=== PATIENT | male | born 1965 ===

== ENCOUNTER 2018-06-17 08:56 | Emergency (ER) | payer OTHER ==
[2018-06-17 09:12] VITALS: RESP 18; O2SAT 99
[2018-06-17] MEDS ORDERED: Sodium Chloride 0.9% 1,000 ML IV STA (09:13)
[2018-06-17] MEDS ORDERED: Lidocaine 129 MG in Sodium Chloride 0.9% 100 ML IV STA (09:13)
--- NOTE | 2018-06-17 09:16 | C.PDOC ---
History Of Present Illness 52 y/o male presents to the ED complaining of new-onset right groin pain since this morning. Patient states he awoke normally, and immediately noticed right lower quadrant discomfort and felt the urge to have a bowel movement, though none occurred. He now reports pain is traveling to the right groin and inner thigh. Associated with nausea and vomiting. He denies any scrotal pain, scrotal swelling, fever, or chills. Also denies prior history of renal calculi. EXAM MOD DIST NONTOXIC ABD SOFT NT ND NO R/G REMAINDER NEG Time Seen by Provider: 06/17/18 09:05 Chief Complaint (Nursing): Abdominal Pain History Per: Patient History/Exam Limitations: no limitations Onset/Duration Of Symptoms: Hrs Current Symptoms Are (Timing): Still Present Location Of Pain/Discomfort: RLQ Radiation Of Pain To:: Other (Right groin) Past Medical History Reviewed: Historical Data, Nursing Documentation, Vital Signs Vital Signs: Last Vital Signs Temp 98.7 F 06/17/18 09:50 Pulse 68 06/17/18 09:50 Resp 18 06/17/18 09:50 BP 116/71 06/17/18 09:50 Pulse Ox 99 06/17/18 10:44 - Medical History PMH: No Chronic Diseases Denies: Kidney Stones Surgical History: No Surg Hx Family History: States: No Known Family Hx - Social History Hx Alcohol Use: Yes Hx Substance Use: No - Immunization History Hx Tetanus Toxoid Vaccination: Yes Hx Influenza Vaccination: Yes Hx Pneumococcal Vaccination: Yes Review Of Systems Except As Marked, All Systems Reviewed And Found Negative. Constitutional: Negative for: Fever, Chills Gastrointestinal: Positive for: Nausea, Vomiting, Abdominal Pain (RLQ). Negative for: Diarrhea Genitourinary: Positive for: Other (Right groin pain). Negative for: Dysuria, Frequency, Incontinence, Penile Discharge, Scrotal Pain (or swelling) Skin: Negative for: Rash Neurological: Negative for: Weakness, Numbness, Incoordination Physical Exam - Physical Exam Appears: Non-toxic, In Acute Distress (mild distress) Skin: Normal Color, Warm, Dry Head: Atraumatic, Normacephalic Eye(s): bilateral: Normal Inspection, PERRL, EOMI Oral Mucosa: Moist Neck: Normal ROM, Supple Chest: Symmetrical Cardiovascular: Rhythm Regular, No Murmur Respiratory: Normal Breath Sounds, No Accessory Muscle Use, Other (NARD) Gastrointestinal/Abdominal: Soft, No Tenderness, No Distention, No Guarding, No Rebound Back: Normal Inspection, No CVA Tenderness, No Vertebral Tenderness Extremity: Bilateral: Atraumatic, Normal Color And Temperature, Normal ROM Pulses: Left Dorsalis Pedis: Normal, Right Dorsalis Pedis: Normal Neurological/Psych: Oriented x3, Normal Speech, Normal Cranial Nerves, Normal Motor, Normal Sensation Gait: Steady ED Course And Treatment - Laboratory Results Result Diagrams: 06/17/18 09:35 06/17/18 09:35 O2 Sat by Pulse Oximetry: 99 (RA) Pulse Ox Interpretation: Normal - CT Scan/US CT Abd/Pelvis Other Rad Studies (CT/US): Read By Radiologist, Radiology Report Reviewed CT/US Interpretation: Accession No. : [id number]. Patient Name / ID : JANA SALAS / [id number]. Exam Date : 06/17/2018 09:36:13 ( Approved ). Study Comment : Sex / Age : M / 52Y. Creator : Patti Cordoba. Dictator : Header Machine Operator : Ice Seller : Gunnar Segundo MD. Approver2 : Report Date : 06/17/2018 09:44:45. My Comment : . Date of service: 06/17/2018. PROCEDURE: CT abdomen and pelvis dated 06/17/2018. HISTORY: Abdominal pain rule out stone. COMPARISON: No prior study available for comparison. TECHNIQUE: Contiguous axial images of the abdomen and pelvis without oral or intravenous contrast . Sagittal and coronal reformats generated. Radiation dose : Total exam DLP = 642.43 mGy-cm. This CT exam was performed using one or more of the following dose reduction techniques: Automated exposure control, adjustment of the mA and/or kV according to patient size, and/or use of iterative reconstruction technique. FINDINGS: LOWER THORAX: Mild passive/ dependent type atelectasis both lung bases. There are also atelectatic and or scarring changes seen in the middle lobe and lingular regions as well. No effusion or basilar pneumothorax. Heart size is within range of normal. No significant pericardial effusion. LIVER: Liver is enlarged measuring over 20 cm in CC dimension. No obvious hepatic mass collection or calcification. GALLBLADDER AND BILE DUCTS: Unremarkable. PANCREAS: Pancreas is slightly atrophic and fatty replaced. No obvious pancreatic masses collections or calcifications. . SPLEEN: Unremarkable. No splenomegaly. ADRENALS: Unremarkable. KIDNEYS AND URETERS: Malrotation right kidney. There is mild right-sided hydronephrosis with a small approximately 3 mm elliptical shaped calculus either within the right posterior lumen of the urinary bladder or intramural portion of the right UVJ. And mild infiltration changes and fluid also seen in the right perinephric fat adjacent to the at ascending colon. BLADDER: Grossly unremarkable. REPRODUCTIVE: Unrem prostate gland unremarkable. APPENDIX: Unrem normal appendix best seen on axial image number [id number]. BOWEL: Evaluation of the bowel is somewhat limited due to the lack of oral contrast. The stomach is distended with food debris/liquid and air. Visualized loops of small bowel exhibit normal contour and caliber. No evidence of acute mechanical small bowel obstruction. A good portion of the colon is relatively collapsed which in part presumably accounts for thick-walled appearance however mild submucosal fatty deposition related to prior bouts of nonspecific inflammation the to be considered. Diverticulosis involving the sigmoid and descending colon. There are some vague infiltration changes also seen adjacent to a short segment of the distal descending/sigmoid colon junction. Rule out mild early acute diverticulitis. . Note also made of an a few right-sided colonic diverticula. PERITONEUM: As above. No free intraperitoneal air small fat containing umbilical hernia. Small fat containing bilateral inguinal hernias left larger than right. LYMPH NODES: Unremarkable. No enlarged lymph nodes. VASCULATURE: No evidence of abdominal aortic or iliac artery aneurysm. BONES: Note is made of an in situ intramedullary male proximal left femur. Mild multilevel degenerative spondylosis of the lumbar spine. There is an elliptical shaped lucency within L4 segment which the joins the superior L4 endplate. This may represent a large chronic Schmorl's node and /or degenerative subchondral cyst. . No acute compression fractures no retropulsed fragments. OTHER FINDINGS: None. IMPRESSION: There is mild right -sided hydronephrosis secondary to a small 3 mm calculus right posterior lumen of the urinary bladder or within the intramural portion of the right UVJ. Mild infiltration and fluid present in the right perinephric fat adjacent to the ascending colon. The diverticulosis on anomaly involving the sigmoid and descending colon. There are mild infiltration changes in adjacent to a short segment of the distal descending/sigmoid colon junction ; rule out mild early acute diverticulitis. Additionally, most of the colon is collapsed which presumably accounts for slight thick-walled appearance however submucosal fatty deposition which can be seen in chronic inflammation to be considered. Clinical correlation recommended. Hepatomegaly. Progress - Re-Evaluation Re-evaluation Note: 06/17/18 10:47 IMPROVED ASYMPT. - Data Reviewed Data Reviewed: Lab, Diagnostic imaging, Old records Medical Decision Making Medical Decision Making: Impression: Right groin and RLQ pain Initial Plan: --EKG --CMP --Lipase --CBC --Urinalysis --IV fluids --Toradol 30 mg IVP --Zofran 8 mg IVP --Lidocaine 129mg IV --Flomax 0.4 mg PO --CT Abd/Pelvis w/o contrast Updates: CT results discussed with patient in detail. Disposition Counseled Patient/Family Regarding: Studies Performed, Diagnosis, Need For Followup, Rx Given - Disposition Referrals: [facility] [Outside] [facility] [Outside] Disposition: HOME/ ROUTINE Disposition Time: 10:48 Condition: IMPROVED Prescriptions: Acetaminophen with Codeine [Tylenol with Codeine No. 3 300 mg-30 mg] 1 tab PO Q6 PRN #12 tab PRN Reason: Pain, Moderate (4-7) Ibuprofen [Motrin] 600 mg PO Q6 #30 tab Ondansetron [Zofran Odt] 4 mg PO TID PRN #9 odt PRN Reason: Nausea/Vomiting Tamsulosin [Flomax] 0.4 mg PO DAILY #14 cap Instructions: Kidney Stones (DC) Forms: [facility] (Liberian), Work Excuse - Clinical Impression Clinical Impression: Ureterolithiasis, Renal colic - Scribe Statement The provider has reviewed the documentation as recorded by the Patricia Helms Provider Attestation: All medical record entries made by the Bridgetibbautista were at my direction and personally dictated by me. I have reviewed the chart and agree that the record accurately reflects my personal performance of the history, physical exam, medical decision making, and the department course for this patient. I have also personally directed, reviewed, and agree with the discharge instructions and disposition.
[2018-06-17] MEDS ORDERED: Sodium Chloride 0.9% 1,000 ML ONE (09:25)
[2018-06-17 09:41] LABS: BASO % 0.5 % (0.0-2.0); EOS # 0.1 K/uL (0.0-0.7); EOS % 1.1 % (0.0-4.0); HEMOGLOBIN 14.3 g/dL (12.0-18.0); LYMPH # 2.8 K/uL (1.0-4.3); LYMPH % 44.9 % (20.0-40.0); MEAN CELL VOLUME 89.9 fL (80.0-94.0); MEAN CORPUSCULAR HEMOGLOBIN 30.6 pg (27.0-31.0); MEAN CORPUSCULAR HGB CONC 34.1 g/dL (33.0-37.0); MEAN PLATELET VOLUME 8.5 fL (7.2-11.7); MONO # 0.3 K/uL (0.0-0.8); MONO % 5.1 % (0.0-10.0); NEUT % 48.4 % (50.0-75.0); NRBC % 0.1 % (0.0-2.0); RBC 4.69 Mil/uL (4.40-5.90); WHITE BLOOD COUNT 6.3 K/uL (4.8-10.8)
[2018-06-17 09:50] LABS: ALB/GLOB RATIO 1.4 (1.0-2.1); ALT/SGPT 60 U/L (21-72); AST/SGOT 33 U/L (17-59); BLOOD UREA NITROGEN 17 mg/dL (9-20); CALCIUM 8.6 mg/dl (8.6-10.4); GFR AFRICAN-AMERICAN > 60; GFR NON-AFRICAN AMERICAN > 60; LIPASE 107 U/L (23-300)
[2018-06-17 10:30] LABS: SQUAMOUS EPITHIAL < 1 /hpf (0-5); URINE BACTERIA OCC (<OCC); URINE BILIRUBIN NEGATIVE (NEGATIVE); URINE BLOOD 2+ (NEGATIVE); URINE CLARITY Clear (Clear); URINE COLOR Yellow (YELLOW); URINE GLUCOSE (UA) NORMAL (Normal); URINE LEUKOCYTE ESTERASE NEG Leu/uL (Negative); URINE PROTEIN 1+ mg/dL (NEGATIVE); URINE UROBILINOGEN NORMAL mg/dL (0.2-1.0)
--- NOTE | 2018-06-17 10:35 | CT ---
Date of service: 06/17/2018 PROCEDURE: CT abdomen and pelvis dated 06/17/2018. HISTORY: Abdominal pain rule out stone COMPARISON: No prior study available for comparison. TECHNIQUE: Contiguous axial images of the abdomen and pelvis without oral or intravenous contrast . Sagittal and coronal reformats generated. Radiation dose: Total exam DLP = 642.43 mGy-cm. This CT exam was performed using one or more of the following dose reduction techniques: Automated exposure control, adjustment of the mA and/or kV according to patient size, and/or use of iterative reconstruction technique. FINDINGS: LOWER THORAX: Mild passive/dependent type atelectasis both lung bases. There are also atelectatic and or scarring changes seen in the middle lobe and lingular regions as well. No effusion or basilar pneumothorax. Heart size is within range of normal. No significant pericardial effusion. LIVER: Liver is enlarged measuring over 20 cm in CC dimension. No obvious hepatic mass collection or calcification. GALLBLADDER AND BILE DUCTS: Unremarkable. PANCREAS: Pancreas is slightly atrophic and fatty replaced. No obvious pancreatic masses collections or calcifications. . SPLEEN: Unremarkable. No splenomegaly. ADRENALS: Unremarkable. KIDNEYS AND URETERS: Malrotation right kidney. There is mild right-sided hydronephrosis with a small approximately 3 mm elliptical shaped calculus either within the right posterior lumen of the urinary bladder or intramural portion of the right UVJ. And mild infiltration changes and fluid also seen in the right perinephric fat adjacent to the at ascending colon. BLADDER: Grossly unremarkable. REPRODUCTIVE: Unrem prostate gland unremarkable. APPENDIX: Unrem normal appendix best seen on axial image number [id number]. BOWEL: Evaluation of the bowel is somewhat limited due to the lack of oral contrast. The stomach is distended with food debris/liquid and air. Visualized loops of small bowel exhibit normal contour and caliber. No evidence of acute mechanical small bowel obstruction. A good portion of the colon is relatively collapsed which in part presumably accounts for thick-walled appearance however mild submucosal fatty deposition related to prior bouts of nonspecific inflammation the to be considered. Diverticulosis involving the sigmoid and descending colon. There are some vague infiltration changes also seen adjacent to a short segment of the distal descending/sigmoid colon junction. Rule out mild early acute diverticulitis. . Note also made of an a few right-sided colonic diverticula. PERITONEUM: As above. No free intraperitoneal air small fat containing umbilical hernia. Small fat containing bilateral inguinal hernias left larger than right. LYMPH NODES: Unremarkable. No enlarged lymph nodes. VASCULATURE: No evidence of abdominal aortic or iliac artery aneurysm. BONES: Note is made of an in situ intramedullary male proximal left femur. Mild multilevel degenerative spondylosis of the lumbar spine. There is an elliptical shaped lucency within L4 segment which the joins the superior L4 endplate. This may represent a large chronic Schmorl's node and/or degenerative subchondral cyst. . No acute compression fractures no retropulsed fragments. OTHER FINDINGS: None. IMPRESSION: There is mild right-sided hydronephrosis secondary to a small 3 mm calculus right posterior lumen of the urinary bladder or within the intramural portion of the right UVJ. Mild infiltration and fluid present in the right perinephric fat adjacent to the ascending colon. The diverticulosis on anomaly involving the sigmoid and descending colon. There are mild infiltration changes in adjacent to a short segment of the distal descending/sigmoid colon junction ; rule out mild early acute diverticulitis. Additionally, most of the colon is collapsed which presumably accounts for slight thick-walled appearance however submucosal fatty deposition which can be seen in chronic inflammation to be considered. Clinical correlation recommended. Hepatomegaly.
[2018-06-17 10:57] VITALS: BP 116/70; PULSE 62; TEMP 98
== END 2018-06-17 11:03 | disposition home or self-care (01) ==
LOC: C.ER 08:56
DX: N13.2 Hydronephrosis with renal and ureteral calculous obstruction (principal)
CPT/HCPCS: 74176; 80053; 81001; 83690; 85025; 93005; 96361; 96374; 96375; 99285; J1885; J2001; J2405; J7030